=== PATIENT | male | born 1965 | race Caucasian/White ===

== ENCOUNTER 2018-07-07 08:57 | Outpatient (CLI) | payer BC ==
--- NOTE | 2018-07-07 09:42 | RAD ---
TWO VIEWS CHEST: DATE: 07/07/2018. PROVIDED CHSIT Cough. FINDINGS: Comparison 05/22/2010. Cardiac and mediastinal silhouette is within normal limits. Lungs appear lovely ar. No pleural fluid or pneumothorax apparent. IMPRESSION: No evidence for an acute cardiopulmonary process. POS: C
== END 2018-07-07 08:58 | disposition home or self-care (01) ==
LOC: RAD-FRANK 08:57
PROVIDERS: ATTEND Nurse Practitioner Family
DX: R05 Cough (principal)
CPT/HCPCS: 71046

== ENCOUNTER 2020-08-30 16:30 | Outpatient (CLI) | payer BC ==
--- NOTE | 2020-08-30 16:45 | RAD ---
EXAM: Chest 2 views: HISTORY: Cough COMPARISON: 07/07/2018 FINDINGS: There is a normal-sized cardiomediastinal silhouette. There is no evidence of consolidation, mass, or pleural effusion. Degenerative changes are seen in the spine. IMPRESSION: No evidence of acute cardiopulmonary disease
== END 2020-08-30 16:31 | disposition home or self-care (01) ==
LOC: RAD-FRANK 16:30
PROVIDERS: ATTEND Nurse Practitioner Family
DX: R05 Cough (principal)
CPT/HCPCS: 71046

== ENCOUNTER 2020-10-25 16:43 | Outpatient (CLI) | payer BC ==
[2020-10-26 06:51] LABS: SARS-CoV-2 PCR by NAA Not Detected (NotDetected)
== END 2020-10-25 16:44 | disposition home or self-care (01) ==
LOC: LABBT 16:43
PROVIDERS: ATTEND Internal Medicine
DX: Z01.812 Encounter for preprocedural laboratory examination (principal); R05 Cough; R13.10 Dysphagia, unspecified; Z80.0 Family history of malignant neoplasm of digestive organs; Z20.822 Contact with and (suspected) exposure to COVID-19
CPT/HCPCS: 87635; U0003; U0005

== ENCOUNTER 2020-10-28 06:01 | Day surgery (SDC) | payer BC ==
[2020-10-26 11:46] VITALS: BMI 50.4
[2020-10-28] MEDS ORDERED: Lidocaine 4% Topical Sol 50 ML BOT ONE (07:29)
[2020-10-28] MEDS ORDERED: Albuterol Sulfate HFA (OR ONLY) ONE (07:29)
[2020-10-28] MEDS ORDERED: Fentanyl 100 MCG/2 ML VIAL ONE (07:29)
[2020-10-28] MEDS ORDERED: Midazolam HCl 2 mg/2 ml Vial ONE (07:29)
[2020-10-28] MEDS ORDERED: Succinylcholine 200 MG/10 ml SYRINGE FS ONE (08:00)
[2020-10-28] MEDS ORDERED: Lidocaine 1% PF 5 ML VIAL ONE (08:00)
[2020-10-28] MEDS ORDERED: PROPOFOL 200 MG/20 ML VIAL ONE (08:00)
[2020-10-28] MEDS ORDERED: Dexamethasone 20 MG/5 ML VIAL ONE (08:00)
[2020-10-28] MEDS ORDERED: ePHEDrine Sulfate 50 MG/10 ML VIAL ONE (08:00)
[2020-10-28] MEDS ORDERED: Ondansetron PF 4 MG/2 ML Vial ONE (08:00)
[2020-10-28] MEDS ORDERED: Rocuronium Bromide 10 MG/ML (10ML VIAL) ONE (08:00)
== END 2020-10-28 10:50 | disposition home or self-care (01) ==
LOC: SDC 06:01
PROVIDERS: ATTEND Internal Medicine
PROC: 0DB58ZX Excision of Esophagus, Via Natural or Artificial Opening Endoscopic, Diagnostic (ICD-10-PCS; principal; 2020-10-28)
PROC: 0DBN8ZX Excision of Sigmoid Colon, Via Natural or Artificial Opening Endoscopic, Diagnostic (ICD-10-PCS; principal; 2020-10-28)
DX: Z12.11 Encounter for screening for malignant neoplasm of colon (principal); K63.5 Polyp of colon; K22.8 Other specified diseases of esophagus; K44.9 Diaphragmatic hernia without obstruction or gangrene; I10 Essential (primary) hypertension; G47.30 Sleep apnea, unspecified; E03.9 Hypothyroidism, unspecified; R05 Cough; Z79.899 Other long term (current) drug therapy; Z80.0 Family history of malignant neoplasm of digestive organs
CPT/HCPCS: 88305; J1100; J2250; J2405; J2704; J3010

== ENCOUNTER 2021-06-26 07:16 | Outpatient (CLI) | payer BC | END 2021-06-26 07:17 | disposition home or self-care (01) | LOC: NM 07:16 | PROVIDERS: ATTEND Internal Medicine | DX: R11.0 Nausea (principal) | CPT/HCPCS: 78264; A9541 ==